=== PATIENT | male | born 2000 | race Hispanic/Latino ===

== ENCOUNTER → 2018-02-18 | Outpatient (CLI) | payer BC ==
[~2018-02-18] MED LIST: IOPAMIDOL 370 MG/ML 200 ML INFUS..BTL INJ ONE; SODIUM CHLORIDE 0.9% 50ML 50 ML ONE; ZYRTEC10 MG PO
--- NOTE | 2018-02-18 11:50 | Diagnostic Imaging Report ---
EXAM: CT Abdomen and Pelvis WITH contrast INDICATION: \[id number] \S\0950 \S\INGUINAL HERNIA COMPARISON: None. TECHNIQUE: Abdomen and pelvis were scanned utilizing a multidetector helical scanner from the lung base to the pubic symphysis after administration of IV contrast. Coronal and sagittal reformations were obtained. Routine protocol was performed. Scan was performed when during portal venous phase. IV CONTRAST: 100 mL of Isovue-370 ORAL CONTRAST: Water COMPLICATIONS: None RADIATION DOSE: Total DLP: 491.06 mGy*cm Estimated effective dose: (DLP x 0.015 x size factor) mSv CTDIvol has been reviewed. It is below the limits set by the Radiation Protocol Committee (RPC). FINDINGS: LINES and TUBES: None. LOWER THORAX: Unremarkable HEPATOBILIARY: No focal hepatic lesions. No biliary ductal dilation. GALLBLADDER: No radio-opaque stones or sludge. No wall thickening. SPLEEN: No splenomegaly. PANCREAS: No focal masses or ductal dilatation. ADRENALS: No adrenal nodules KIDNEYS/URETERS: Kidneys enhance symmetrically. No hydronephrosis. No cystic or solid mass lesions. No stones. GI TRACT: No abnormal distention, wall thickening, or evidence of bowel obstruction. Appendix is normal. PELVIC ORGANS/BLADDER: Unremarkable. LYMPH NODES: No lymphadenopathy. VESSELS: Unremarkable. PERITONEUM / RETROPERITONEUM: No free air or fluid. BONES: Unremarkable. SOFT TISSUES: Unremarkable. IMPRESSION: 1. No acute inflammatory process in the abdomen/pelvis. 2. No evidence of inguinal hernia. Signed by: Dr. Chris Shin MD on 02/18/2018 11:47 AM
== END ==
LOC: CT 09:14
PROVIDERS: ATTEND Family Medicine
DX: K40.90 Unilateral inguinal hernia, without obstruction or gangrene, not specified as recurrent (principal)
CPT/HCPCS: 74177; Q9967

== ENCOUNTER → 2018-03-01 | Day surgery (SDC) | payer BC ==
[2018-02-28 13:21] LABS: BASOPHILS % 0.2 % (0.0-1.0); EOSINOPHILS # (AUTO) 0.2 (0.0-0.4); EOSINOPHILS % 1.9 % (0.0-6.0); HEMATOCRIT 44.4 % (38.2-49.6); HEMOGLOBIN 15.2 g/dL (14.0-18.0); LYMPHOCYTES # (AUTO) 2.1 (1.0-3.2); LYMPHOCYTES % 24.4 % (18.0-39.1); MEAN CORPUSCULAR HEMOGLOBIN 31.7 pg (28-32); MEAN CORPUSCULAR HGB CONC 34.2 g/dL (31-35); MEAN CORPUSCULAR VOLUME 92.5 fL (81-99); MONOCYTES # (AUTO) 0.7 (0.2-0.8); MONOCYTES % 8.1 % (4.4-11.3); NEUTROPHILS # (AUTO) 5.5 (2.1-6.9); NEUTROPHILS % 64.8 % (38.7-80.0); PLATELET COUNT 241 x10e3/uL (140-360); RED CELL DISTRIBUTION WIDTH 12.6 % (11.7-14.4)
[~2018-03-01] MED LIST changes: +ACETAMINOPHEN 1000 MG/100 ML 100 ML IV ONE; +ACETAMINOPHEN 1000 MG/100 ML IV ONE; +BUPIVACAINE 0.25%/EPI 30ML SDV INJ ONE; +DEXAMETHASONE SOD PHOS INJ 4 MG/ML VIAL ONE; +FENTANYL CITRATE/PF 100MCG/2 ML INJ ONE; -IOPAMIDOL 370 MG/ML 200 ML INFUS..BTL INJ ONE; +LEVAQUIN500 MG PO; +LIDOCAINE HCL 2% LOCAL INJ 5 ML SDV VIAL INJ ONE; +MIDAZOLAM HCL 2 MG/2 ML VIAL ONE; +MORPHINE SULFATE INJ 10 MG/ML ONE; +ONDANSETRON HCL INJ 2 MG/ML VIAL ONE; +PROPOFOL IV EMULSION 10 MG/ML 20 ML VIAL ONE; +ROCURONIUM BROMIDE 10 MG/ML 5ML VIAL ONE; +SEVOFLURANE INHAL SOLN 250 ML PEN BTL ONE; -SODIUM CHLORIDE 0.9% 50ML 50 ML ONE; +SULINDAC150 MG; +XOPENEX HFA15 GM
--- NOTE | 2018-03-01 16:50 | Operative Report ---
DATE OF PROCEDURE: March 01, 2018 PREOPERATIVE DIAGNOSIS: Pilonidal abscess. POSTOPERATIVE DIAGNOSIS: Pilonidal abscess. OPERATION PERFORMED: Incision and drainage of pilonidal abscess. ANESTHESIA: General. COMPLICATIONS: None. ESTIMATED BLOOD LOSS: Minimal. DESCRIPTION OF PROCEDURE: With the patient lying in bed in the lateral position under good general anesthesia, the sacrolumbar region was prepped with Betadine solution and draped in the usual manner. The abscess was in the midline, extending towards the left side in the sacral region. An incision was made, and immediately some pus was encountered. This was aspirated. The abscess cavity was then entered after removing the overlying skin, and there were several hairs imbedded within the abscess cavity, representing a typical pilonidal cyst. All of this was then debrided with all of the subcutaneous tissue debrided all the way down to the presacral fascia. Once this was done and everything was cleaned out, the wound was then copiously irrigated with dilute Betadine solution and the wound was then packed with iodoform gauze. A dressing was applied. The sponge, lap and needle count was correct. The patient tolerated the procedure well and returned to the recovery room in stable condition. Job#: [id number] EV
[2018-03-01 17:00] VITALS: BP 99/58
== END | disposition home or self-care (01) ==
LOC: OR 14:08
PROVIDERS: ATTEND Surgery
DX: L05.01 Pilonidal cyst with abscess (principal); J45.909 Unspecified asthma, uncomplicated; K21.9 Gastro-esophageal reflux disease without esophagitis; Z91.018 Allergy to other foods
CPT/HCPCS: 11770; 36415; 85025; J1100; J2001; J2250; J2270; J2405

== ENCOUNTER 2018-06-11 19:03 | Emergency (ER) | payer BC ==
[~2018-06-11] VITALS: Ht 182.9 cm; Wt 92.5 kg
[~2018-06-11 19:03] MED LIST changes: -ACETAMINOPHEN 1000 MG/100 ML 100 ML IV ONE; -ACETAMINOPHEN 1000 MG/100 ML IV ONE; -BUPIVACAINE 0.25%/EPI 30ML SDV INJ ONE; -DEXAMETHASONE SOD PHOS INJ 4 MG/ML VIAL ONE; -FENTANYL CITRATE/PF 100MCG/2 ML INJ ONE; -LIDOCAINE HCL 2% LOCAL INJ 5 ML SDV VIAL INJ ONE; -MIDAZOLAM HCL 2 MG/2 ML VIAL ONE; -MORPHINE SULFATE INJ 10 MG/ML ONE; -ONDANSETRON HCL INJ 2 MG/ML VIAL ONE; -PROPOFOL IV EMULSION 10 MG/ML 20 ML VIAL ONE; -ROCURONIUM BROMIDE 10 MG/ML 5ML VIAL ONE; -SEVOFLURANE INHAL SOLN 250 ML PEN BTL ONE
[2018-06-11] MEDS ORDERED: KETOROLAC TROMETHAMINE 30 MG/ML VIAL IV STA (19:40)
[2018-06-11] MEDS ORDERED: SODIUM CHLORIDE 0.9% 1000ML 1,000 ML IV SCH (19:45)
--- NOTE | 2018-06-11 21:06 | Diagnostic Imaging Report ---
EXAM: CT Abdomen and Pelvis WITHOUT contrast INDICATION: Abdominal pain. ^[id number] ^2022 COMPARISON: None. TECHNIQUE: Abdomen and pelvis were scanned utilizing a multidetector helical scanner from the lung base to the pubic symphysis without administration of IV contrast. Absence of intravenous contrast decreases sensitivity for detection of focal lesions and vascular pathology. Coronal and sagittal reformations were obtained. Routine protocol was performed. IV CONTRAST: None ORAL CONTRAST: Water COMPLICATIONS: None RADIATION DOSE: Total DLP: 819.33 mGy*cm Estimated effective dose: (DLP x 0.015 x size factor) mSv CTDIvol has been reviewed. It is below the limits set by the Radiation Protocol Committee (RPC). Dose modulation, iterative reconstruction, and/or weight based adjustment of the mA/kV was utilized to reduce the radiation dose to as low as reasonably achievable. FINDINGS: LINES and TUBES: None. LOWER THORAX: Unremarkable HEPATOBILIARY: No focal hepatic lesions. No biliary ductal dilation. GALLBLADDER: No radio-opaque stones or sludge. No wall thickening. SPLEEN: No splenomegaly. PANCREAS: No focal masses or ductal dilatation. ADRENALS: No adrenal nodules KIDNEYS/URETERS: No hydronephrosis. No cystic or solid mass lesions. No stones. GI TRACT: No abnormal distention, wall thickening, or evidence of bowel obstruction. Appendix is normal. PELVIC ORGANS/BLADDER: Unremarkable. LYMPH NODES: No lymphadenopathy. VESSELS: Unremarkable. PERITONEUM / RETROPERITONEUM: No free air or fluid. BONES: Unremarkable. SOFT TISSUES: Unremarkable. IMPRESSION: No acute abnormalities in the abdomen or pelvis. Signed by: DR. Servando Nunn MD on 06/11/2018 9:03 PM
--- NOTE | 2018-06-11 22:44 | Diagnostic Imaging Report ---
EXAM: Scrotal Ultrasound with Duplex INDICATION: Left testicular pain ^[id number] ^2210 COMPARISON: None TECHNIQUE: Transverse and longitudinal images were obtained of the scrotum with grayscale imaging, color Doppler and spectral waveform analysis. FINDINGS: Right testis: Size: 4 x 2.8 x 3.1 cm, normal in size. Echogenicity: Normal Mass/Cysts: None Left testis: Size: 4.3 x 2.2 x 3.2 cm, normal in size. Echogenicity: Normal Mass/Cysts: None Epididymis: Appearance: Normal in size without increased vascularity. Mass/Cysts: None Extratesticular: Masses: None Hydrocele: None Varicocele: None Doppler: Normal arterial flow to both testes and symmetrical flow on color Doppler evaluation is seen. No evidence of testicular torsion. IMPRESSION: 1. No evidence of testicular torsion. 2. Normal scrotal ultrasound exam. Signed by: DR. Servando Nunn MD on 06/11/2018 10:41 PM
== END 2018-06-11 22:54 | disposition home or self-care (01) ==
LOC: ER 19:03 → FSED 22:54
DX: R10.32 Left lower quadrant pain (principal); N50.812 Left testicular pain; J45.909 Unspecified asthma, uncomplicated; E78.5 Hyperlipidemia, unspecified; F17.210 Nicotine dependence, cigarettes, uncomplicated
CPT/HCPCS: 74176; 76870; 80048; 80053; 81003; 99284; J1885; J7030

== ENCOUNTER → 2018-06-24 | Outpatient (CLI) | payer BC ==
[~2018-06-24] MED LIST changes: +IOPAMIDOL 300MG/ML 100 ML INFUS..BTL IV ONE
--- NOTE | 2018-06-24 09:30 | Diagnostic Imaging Report ---
EXAMINATION: Intravenous Pyelogram COMPARISON: CT Abdomen/Pelvis 06/11/18. TECHNIQUE: Intravenous contrast was administered and multiple AP and oblique KUB radiographs obtained. FINDINGS: Contrast opacities the renal collecting system and portions of the ureter bilaterally on different views. The bladder is opacified on final images. No evidence of hydronephrosis or filling defect to suggest stone or mass lesion. A calcification in the left pelvis corresponds to phlebolith on CT from 06/11/18. IMPRESSION: No evidence of filling defect to suggest urinary stone or mass. Signed by: Dr. Nallely Da Silva MD on 06/24/2018 9:27 AM
== END ==
LOC: DX 07:38
PROVIDERS: ATTEND Urology
DX: R31.21 Asymptomatic microscopic hematuria (principal); N23 Unspecified renal colic
CPT/HCPCS: 74400; Q9967

== ENCOUNTER → 2018-06-29 | Day surgery (SDC) | payer BC ==
[2018-06-28 12:17] LABS: BASOPHILS % 0.4 % (0.0-1.0); EOSINOPHILS # (AUTO) 0.1 (0.0-0.4); EOSINOPHILS % 2.5 % (0.0-6.0); HEMATOCRIT 43.6 % (38.2-49.6); HEMOGLOBIN 15.3 g/dL (14.0-18.0); LYMPHOCYTES # (AUTO) 2.3 (1.0-3.2); LYMPHOCYTES % 40.1 % (18.0-39.1); MEAN CORPUSCULAR HEMOGLOBIN 31.5 pg (28-32); MEAN CORPUSCULAR HGB CONC 35.1 g/dL (31-35); MEAN CORPUSCULAR VOLUME 89.9 fL (81-99); MONOCYTES # (AUTO) 0.4 (0.2-0.8); MONOCYTES % 6.2 % (4.4-11.3); NEUTROPHILS # (AUTO) 2.8 (2.1-6.9); NEUTROPHILS % 50.1 % (38.7-80.0); PLATELET COUNT 256 x10e3/uL (140-360); RED BLOOD COUNT 4.85 x10e6/uL (4.3-5.7); RED CELL DISTRIBUTION WIDTH 12.8 % (11.7-14.4)
[2018-06-28 12:36] LABS: ALANINE AMINOTRANSFERASE 28 IU/L (0-55); ALBUMIN 4.5 g/dL (3.5-5.0); ALBUMIN/GLOBULIN RATIO 1.5 (0.8-2.0); ALKALINE PHOSPHATASE 78 IU/L (40-150); BLOOD UREA NITROGEN 14 mg/dL (7-26); BUN/CREATININE RATIO 16 (6-25); CALCIUM 9.8 mg/dL (8.4-10.2); CARBON DIOXIDE 25 mmol/L (22-29); CHLORIDE 101 mmol/L (98-107); EST GLOMERULAR FILTRATION RATE > 60 ML/MIN (60-); GLUCOSE 92 mg/dL (74-118); SODIUM 136 mmol/L (136-145)
[~2018-06-29] MED LIST changes: +BELLADONNA/OPIUM 30 MG SUPP RC ONE; +CEFTRIAXONE SOD 1 GM/NS 50 ML 50 ML IV ONE; +DEXAMETHASONE SOD PHOS INJ 4 MG/ML VIAL ONE; +FENTANYL CITRATE/PF 100MCG/2 ML INJ ONE; -IOPAMIDOL 300MG/ML 100 ML INFUS..BTL IV ONE; +IOPAMIDOL 610MG/1ML 300 MG/ML VIAL IV ONE; +LIDOCAINE HCL 2% LOCAL INJ 5 ML SDV VIAL INJ ONE; +MIDAZOLAM HCL 2 MG/2 ML VIAL ONE; +ONDANSETRON HCL INJ 2MG/ML 2ML 2 MG/ML VIAL ONE; +PROPOFOL IV EMULSION 10 MG/ML 20 ML VIAL ONE; +SEVOFLURANE INHAL SOLN 250 ML PEN BTL ONE
[2018-06-29 12:30] VITALS: BP 117/79
--- NOTE | 2018-08-26 06:42 | Operative Report ---
DATE OF PROCEDURE: 06/29/2018 SURGEON: Mati Bauer MD PREOPERATIVE DIAGNOSIS: Microscopic hematuria. POSTOPERATIVE DIAGNOSIS: Microscopic hematuria. OPERATION PERFORMED: 1. Cystourethroscopy with bilateral ureteral catheterization and retrograde ureteropyelography. 2. Interpretation of retrograde ureteropyelography. 3. Supervision of fluoroscopy, no radiologist present. ANESTHESIA: General. COMPLICATIONS: None. CLINICAL SUMMARY: Viral Calderon is a 18-year-old man with microhematuria. He has left groin pains, radiating to the left leg. He is brought to the operating room to complete the hematuria workup. He is aware of the risks of bleeding, infection, injury to adjacent structures, need for additional procedures and elected proceed. PROCEDURE IN DETAIL: Informed consent was verified. Viral Calderon was appropriately identified, taken to the operating room, and placed on the cystoscopy table in supine position. Anesthesia was uneventfully begun. The patient was then carefully and gently repositioned in dorsal lithotomy position with all pressure points well padded, and his genitalia were prepared and draped in the usual sterile fashion. A 22.5-Nepalese cystoscope sheath with the visual obturator in place was atraumatically inserted into the patient's urethra. It was guided unremarkably. Urethra passed through normal sphincteric region through the normal prostate bed and entered the patient's normal bladder. Lin endoscopy of the bladder revealed no suspicious mucosal lesions, no tumors, no stones, and no diverticula. There was mild amount of erythema present along the interureteric ridge and the remainder of the trigone. This trigonitis and this erythema may be accounting for the patient's microscopic hematuria. This was not suspicious in appearance. An 8-Nepalese catheter was used to cannulate each ureter and retrograde ureteropyelograms were performed. Interpretation Of Retrograde Ureteropyelography: Contrast was instilled in a retrograde fashion bilaterally. There were no tumors, no stones, and no diverticula. Unobstructed drainage was observed bilaterally fluoroscopically. The patient's bladder was then drained and cystoscope was withdrawn. Belladonna and Opium Suppository was placed revealing a small 15 g prostate that is smooth, nonfunctional and without any nodules. The patient was uneventfully reversed from anesthesia and taken to the recovery room in stable condition. Expressive postop instructions were given and we will follow the patient up in the office. Mati MD DONTE Bauer/ASAEL /[id number] cc: Francis Alex DO
== END | disposition home or self-care (01) ==
LOC: OR 07:10
PROVIDERS: ATTEND Urology
DX: R31.29 Other microscopic hematuria (principal); N30.30 Trigonitis without hematuria; R10.32 Left lower quadrant pain; M79.605 Pain in left leg; J45.909 Unspecified asthma, uncomplicated; Z84.1 Family history of disorders of kidney and ureter
CPT/HCPCS: 36415; 52005; 74420; 80053; 85025; C1758; J0696; J1100; J2001; J2250; J2405; J2704; Q9967

== ENCOUNTER → 2018-10-23 | Day surgery (SDC) | payer BC ==
[2018-10-15 13:26] LABS: BASOPHILS % 0.5 % (0.0-1.0); EOSINOPHILS # (AUTO) 0.3 (0.0-0.4); EOSINOPHILS % 5.8 % (0.0-6.0); HEMATOCRIT 41.1 % (38.2-49.6); HEMOGLOBIN 14.6 g/dL (14.0-18.0); LYMPHOCYTES # (AUTO) 2.7 (1.0-3.2); LYMPHOCYTES % 48.8 % (18.0-39.1); MEAN CORPUSCULAR HEMOGLOBIN 31.6 pg (28-32); MEAN CORPUSCULAR HGB CONC 35.5 g/dL (31-35); MONOCYTES # (AUTO) 0.4 (0.2-0.8); MONOCYTES % 7.1 % (4.4-11.3); NEUTROPHILS # (AUTO) 2.1 (2.1-6.9); NEUTROPHILS % 37.3 % (38.7-80.0); PLATELET COUNT 259 x10e3/uL (140-360); RED BLOOD COUNT 4.62 x10e6/uL (4.3-5.7); RED CELL DISTRIBUTION WIDTH 12.8 % (11.7-14.4)
[~2018-10-23] MED LIST changes: -BELLADONNA/OPIUM 30 MG SUPP RC ONE; +BUPIVACAINE 0.25%/EPI 30ML SDV INJ ONE; -CEFTRIAXONE SOD 1 GM/NS 50 ML 50 ML IV ONE; +HYDROCODONE/APAP 7.5MG-325MG 1 EA TAB ONE; -IOPAMIDOL 610MG/1ML 300 MG/ML VIAL IV ONE; +KETOROLAC TROMETHAMINE 30 MG/ML VIAL ONE; +ROCURONIUM BROMIDE 10 MG/ML 5ML VIAL ONE
--- NOTE | 2018-10-23 07:45 | NUR ---
SPIRITUAL CARE - Pre-Surgery Assessment: Pt in bed. Pt's mom at bedside. Pt reported supportive attention from family and friends. Intervention: I provided pastoral presence, hospitality, and sympathetic listening. I acquainted pt with availability of journeyman meat cutter while hospitalized. Outcome: Pt expressed appreciation for visit. No need for follow up indicated at this time. RUBINA Villalain Spiritual Care Department O: [phone] Pager: [phone] ([phone] number calling from)
[2018-10-23 11:25] VITALS: BP 113/69
--- NOTE | 2018-10-23 15:51 | Operative Report ---
DATE OF PROCEDURE: 10/23/2018 SURGEON: Benny Escobar MD POSTOPERATIVE DIAGNOSIS: Pilonidal cyst and sinuses. POSTOPERATIVE DIAGNOSIS: Pilonidal cyst and sinuses. OPERATION PERFORMED: Wide excision of pilonidal cyst and sinuses with rotational gluteal flap closure. HYDRAULIC PRESS OPERATOR: EARLENE Hebert. ANESTHESIA: General. COMPLICATIONS: None. ESTIMATED BLOOD LOSS: Minimal. PROCEDURE IN DETAIL: With the patient lying in bed in the prone position under good general endotracheal anesthesia, the sacral and perineal area were prepped with Betadine solution and draped in the usual manner. An elliptical incision was then made to include all of the sinuses that were present at the midline and to the left of midline in the sacral area. The incision was deepened through the subcutaneous tissue all the way down to the sacral fascia and the cyst and all sinuses were then removed en bloc without violating any of the borders. After this was done, hemostasis was ascertained. Fascial flaps were then developed on both gluteal muscles on both sides in order to take the tension off to be able to reapproximate the wound. After this was done, the fascia was then reapproximated at the midline using interrupted sutures of 2-0 Vicryl. The subcutaneous tissue was approximated with 2-0 Vicryl and the skin was closed with interrupted vertical mattress sutures of 2-0 and 3-0 silk. All layers were infiltrated on the way out with 0.25% Marcaine solution. Dressings were applied. The sponge, lap, and needle count was correct. The patient tolerated the procedure well and returned to the recovery room in stable condition. Benny Escobar MD JLR/MODL /[id number]
== END | disposition home or self-care (01) ==
LOC: OR 07:00
PROVIDERS: ATTEND Surgery
DX: L05.91 Pilonidal cyst without abscess (principal); L90.5 Scar conditions and fibrosis of skin; J45.909 Unspecified asthma, uncomplicated; E78.6 Lipoprotein deficiency; K21.9 Gastro-esophageal reflux disease without esophagitis; Z01.812 Encounter for preprocedural laboratory examination
CPT/HCPCS: 11772; 36415; 85025; 88304; J1100; J1885; J2001; J2250; J2405; J2704